=== PATIENT | female | born 1990 | race Caucasian/White ===

== ENCOUNTER 2017-12-17 00:12 | Emergency (ER) | payer OTHER ==
[2017-12-17] MEDS ORDERED: LORazepam 2 MG/ML INJ IV STA (00:15)
[2017-12-17] MEDS ORDERED: DIPH,PERTUS(ACELL)TETVAC-LF 0.5 ML VIAL IM ONE (00:17)
[2017-12-17] MEDS ORDERED: SODIUM CHLORIDE 0.9% 1,000 ML IV STA (00:17)
[2017-12-17] MEDS: HYDROmorphone 0.5 MG/0.5 ML SYRINGE IVP STA ×2 (00:19→02:56)
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
[2017-12-17] MEDS ORDERED: ceFAZolin IN SWFI 2 GM/20 ML SYRINGE IVP ONE (00:38)
[2017-12-17 00:39] LABS: Basophils % (A) 0 %; Eosinophils # (A) 0.4 k/uL (0-0.7); Eosinophils % (A) 4 %; HCT 39.4 % (34.0-46.0); HGB 12.5 gm/dL (11.4-16.0); Lymphocytes # (A) 3.2 k/uL (1.0-4.8); Lymphocytes % (A) 31 %; MCH 29.7 pg (25.0-35.0); MCHC 31.8 g/dL (31.0-37.0); MCV 93.3 fL (80.0-100.0); Mean Platelet Volume 8.4; Monocytes # (A) 0.4 k/uL (0-1.0); Monocytes % (A) 4 %; Neutrophils % (A) 59 %; Platelet Count 268 k/uL (150-450); RBC 4.22 m/uL (3.80-5.40); RDW 12.8 % (11.5-15.5); WBC 10.2 k/uL (3.8-10.6)
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
[2017-12-17 00:47] LABS: Partial Thromboplastin Time 22.4 sec (22.0-30.0); Prothrombin Time 10.1 sec (9.0-12.0)
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
[2017-12-17 00:48] LABS: ALT 28 U/L (9-52); AST 37 U/L (14-36); Albumin 4.4 g/dL (3.5-5.0); Alkaline Phosphatase 50 U/L (38-126); Amylase 54 U/L (30-110); Anion Gap 12 mmol/L; Blood Urea Nitrogen 11 mg/dL (7-17); Calcium 8.8 mg/dL (8.4-10.2); Carbon Dioxide 18 mmol/L (22-30); Chloride 112 mmol/L (98-107); Glucose 129 mg/dL (74-99); Lipase 145 U/L (23-300); Potassium 3.8 mmol/L (3.5-5.1); Sodium 142 mmol/L (137-145); Total Bilirubin 0.2 mg/dL (0.2-1.3); Total Protein 6.9 g/dL (6.3-8.2)
[2017-12-17 00:53] LABS: Alcohol 186 mg/dL
[2017-12-17 00:55] LABS: Creatine Kinase 77 U/L (30-135)
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
[2017-12-17 01:04] LABS: Glucose,Whole Blood 112 mg/dL (75-99)
[2017-12-17 01:09] LABS: Creatine Kinase MB 0.7 ng/mL (0.0-2.4); Troponin I <0.012 ng/mL (0.000-0.034)
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
[2017-12-17] MEDS ORDERED: SODIUM CHLORIDE 0.9% 1,000 ML IV ONE (03:31)
[2017-12-17 04:08] VITALS: BP 122/75; PULSE 120; RESP 18; TEMP 97.4
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
--- NOTE | 2017-12-18 08:13 | CDI ---
Documentation Clarification OP Dear Dr. Tariq Zafar Please provide specific abrasion site . Thank you, Kg San Truck Despatcher If you have any questions, please contact Multi Slide Machine Tender at [phone] [facility]
== END 2017-12-17 03:30 | disposition other institution (70) ==
LOC: EC 00:12
DX: S52.502B Unspecified fracture of the lower end of left radius, initial encounter for open fracture type I or II (principal); S70.212A Abrasion, left hip, initial encounter; S30.811A Abrasion of abdominal wall, initial encounter; F90.9 Attention-deficit hyperactivity disorder, unspecified type; F17.200 Nicotine dependence, unspecified, uncomplicated; Z79.899 Other long term (current) drug therapy; Z88.2 Allergy status to sulfonamides; Z23 Encounter for immunization; V28.5XXA Motorcycle passenger injured in noncollision transport accident in traffic accident, initial encounter; Y92.89 Other specified places as the place of occurrence of the external cause
CPT/HCPCS: 99291 ×2; 29105 ×2; 96374 ×2; 96375 ×3; 96376 ×2; 96361 ×4; 90471 ×2; 36415; 93005; 86900; 86901; 80053; 82150; 82550; 82553; 83605; 83690; 84484; 85025; 85610; 85730; 86850; 80320; 72170; 73090; 73590; 73610; 71045; 72125; 70450; 71260; 74177; 90715; J2060; J1170; J0690; Q9967

== ENCOUNTER 2017-12-18 23:21 | Emergency (ER) | payer OTHER ==
[2017-12-18 23:28] VITALS: RESP 20
[2017-12-18] MEDS ORDERED: MORPHINE SULFATE 4 MG/ML SYRINGE IM STA (23:35)
[2017-12-18] MEDS ORDERED: LIDOCAINE VISCOUS 2% 15 ML CUP MUCOUS MEM ONE (23:48)
[2017-12-19] MEDS ORDERED: BACITRACIN 500 UNIT/GM OINT 28.4 GM TUBE TOPICAL ONE (00:12)
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
[2017-12-19 01:10] VITALS: BP 149/79; PULSE 100; TEMP 98
== END 2017-12-19 01:11 | disposition home or self-care (01) ==
LOC: EC 23:21
DX: S52.92XE Unspecified fracture of left forearm, subsequent encounter for open fracture type I or II with routine healing (principal); S92.919 Unspecified fracture of unspecified toe(s); S70.212D Abrasion, left hip, subsequent encounter; S70.312D Abrasion, left thigh, subsequent encounter; S80.212D Abrasion, left knee, subsequent encounter; S90.512D Abrasion, left ankle, subsequent encounter; F90.9 Attention-deficit hyperactivity disorder, unspecified type; F17.200 Nicotine dependence, unspecified, uncomplicated; Z79.899 Other long term (current) drug therapy; Z88.2 Allergy status to sulfonamides; V29.9XXD Motorcycle rider (driver) (passenger) injured in unspecified traffic accident, subsequent encounter
CPT/HCPCS: 99283; 96372; J2270

== ENCOUNTER 2018-08-21 10:48 | Emergency (ER) | payer OTHER ==
[2018-08-21 10:52] VITALS: BP 117/79; PULSE 77; RESP 18; TEMP 97.8
--- NOTE | 2018-08-21 11:39 | XR ---
EXAMINATION TYPE: XR wrist complete LT DATE OF EXAM: 08/21/2018 CLINICAL HISTORY: Prior surgery with new pain. TECHNIQUE: Frontal, lateral and oblique images of the left wrist are obtained. COMPARISON: Left forearm x-ray December 17, 2017. FINDINGS: There is no new acute fracture/dislocation evident in the left wrist. There is fixating pl ate through healed fracture deformity distal radial metadiaphysis. There is some dorsal angulation of the distal ulna on lateral view without fracture. The carpal joint spaces are preserved. The overl rodrigo soft tissue shows soft tissue prominence or outpouching along dorsal surface at level of carpal bones suspicious for ganglion cyst. Correlate clinically. IMPRESSION: As above.
[2018-08-21] MEDS ORDERED: LIDOCAINE 1% INJ 10MG/ML (20 ML MDV) SQ ONE (11:58)
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
== END 2018-08-21 13:01 | disposition home or self-care (01) ==
LOC: EC 10:48
DX: M67.432 Ganglion, left wrist (principal); F90.9 Attention-deficit hyperactivity disorder, unspecified type; F17.200 Nicotine dependence, unspecified, uncomplicated; Z79.899 Other long term (current) drug therapy; Z88.2 Allergy status to sulfonamides
CPT/HCPCS: 73110; 99284; 10160; J2001

== ENCOUNTER 2018-11-27 05:05 | Emergency (ER) | payer OTHER ==
[2018-11-27 05:14] VITALS: PULSE 78
[2018-11-27] MEDS ORDERED: FAMOTIDINE 20 MG TAB PO STA (05:41)
[2018-11-27] MEDS ORDERED: predniSONE 50 MG TAB PO STA (05:41)
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
[2018-11-27 06:13] LABS: Basophils % (A) 0 %; Eosinophils # (A) 0.3 k/uL (0-0.7); Eosinophils % (A) 3 %; HCT 37.5 % (34.0-46.0); HGB 12.4 gm/dL (11.4-16.0); Lymphocytes # (A) 2.2 k/uL (1.0-4.8); Lymphocytes % (A) 22 %; MCH 30.5 pg (25.0-35.0); MCHC 33.1 g/dL (31.0-37.0); MCV 92.2 fL (80.0-100.0); Mean Platelet Volume 8.5; Monocytes # (A) 0.5 k/uL (0-1.0); Monocytes % (A) 5 %; Neutrophils # (A) 6.8 k/uL (1.3-7.7); Neutrophils % (A) 68 %; Platelet Count 264 k/uL (150-450); RBC 4.07 m/uL (3.80-5.40); RDW 14.4 % (11.5-15.5)
[2018-11-27] MEDS ORDERED: KETOROLAC 30 MG/ML 1 ML VIAL IVP STA (07:44)
[2018-11-27 07:50] VITALS: BP 114/71; RESP 16; TEMP 97.6
== END 2018-11-27 08:12 | disposition home or self-care (01) ==
LOC: EC 05:05
DX: L50.9 Urticaria, unspecified (principal); M19.071 Primary osteoarthritis, right ankle and foot; F90.9 Attention-deficit hyperactivity disorder, unspecified type; F17.200 Nicotine dependence, unspecified, uncomplicated; Z79.899 Other long term (current) drug therapy; Z88.2 Allergy status to sulfonamides
CPT/HCPCS: 36415; 84550; 85025; 99283; 96374; J1885; J7512

== ENCOUNTER → 2018-12-03 | Outpatient (CLI) | payer OTHER ==
--- NOTE | 2018-12-04 07:49 | XR ---
EXAMINATION TYPE: XR chest 2V DATE OF EXAM: 12/03/2018 COMPARISON: Prior chest x-ray 12/17/2017 HISTORY: COPD, dyspnea TECHNIQUE: Frontal and lateral views of the chest are obtained. FINDINGS: Prominent lung volumes with flattening of hemidiaphragms is noted suggesting underlying [employer] D. There is no focal air space opacity, pleural effusion, or pneumothorax seen. The cardiac silhouet te size is stable. The osseous structures are intact. IMPRESSION: No acute cardiopulmonary process.
== END | disposition home or self-care (01) ==
LOC: RADXRMAIN 14:31
PROVIDERS: ATTEND Internal Medicine Infectious Disease
DX: J44.9 Chronic obstructive pulmonary disease, unspecified (principal)
CPT/HCPCS: 71046

== ENCOUNTER → 2019-01-02 | Outpatient (CLI) | payer OTHER ==
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
== END | disposition home or self-care (01) ==
LOC: RADCTMAIN 14:59
PROVIDERS: ATTEND Physician Assistant
DX: R06.00 Dyspnea, unspecified (principal)
CPT/HCPCS: 71260; Q9967

== ENCOUNTER 2019-10-02 14:29 | Emergency (ER) | payer OTHER ==
[2019-10-02 14:37] VITALS: RESP 18; TEMP 98.4
[2019-10-02] MEDS ORDERED: IBUPROFEN 800 MG TAB PO STA (15:52)
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
[2019-10-02 16:48] VITALS: BP 128/68; PULSE 109
== END 2019-10-02 16:46 | disposition home or self-care (01) ==
LOC: EC 14:29
DX: S16.1XXA Strain of muscle, fascia and tendon at neck level, initial encounter (principal); S66.912A Strain of unspecified muscle, fascia and tendon at wrist and hand level, left hand, initial encounter; F90.9 Attention-deficit hyperactivity disorder, unspecified type; F17.200 Nicotine dependence, unspecified, uncomplicated; Z79.899 Other long term (current) drug therapy; Z88.2 Allergy status to sulfonamides; V43.52XA Car driver injured in collision with other type car in traffic accident, initial encounter; Y92.410 Unspecified street and highway as the place of occurrence of the external cause
CPT/HCPCS: 71046; 72050; 99283

== ENCOUNTER 2019-10-05 16:20 | Emergency (ER) | payer OTHER ==
[2019-10-05 16:26] VITALS: RESP 18
[2019-10-05] MEDS ORDERED: SODIUM CHLORIDE 0.9% 1,000 ML IV STA (16:57)
[2019-10-05] MEDS ORDERED: AMPICILLIN-SULBACTAM 3 GM in SODIUM CHLORIDE 0.9% 100 ML IVPB STA (16:58)
--- NOTE | 2019-10-05 17:17 | ED ---
General Adult HPI - General Chief complaint: Skin/Abscess/Foreign Body Stated complaint: chest pain,infected dog bite Time Seen by Provider: 10/05/19 16:34 Source: patient, RN notes reviewed Mode of arrival: ambulatory Limitations: no limitations - History of Present Illness Initial comments: 29-year-old female presents to the emergency dept for chief complaint of dog bite of the left hand. Patient was bitten by a dog 2 days ago on Saturday. Patient states she cleaned out the wound and then super glued it shut. Patient was not seen in the emergency department for this, she was seen the day before this happened. Patient's tetanus was updated in 2018. Patient saw her DIRECTOR OF ANALYTICS today who sent her to ER for eval. Patient is afebrile. She denies any tracking redness. Patient does have some mild rythema with associated edema to the back of the left hand. Patient has no other complaints at this time including shortness of breath, chest pain, abdominal pain, nausea or vomiting, headache, or visual changes. - Related Data Home Medications Medication Instructions Recorded Confirmed Dextroamphetamine/Amphetamine 20 mg PO DAILY 11/27/18 11/27/18 [Adderall] Previous Rx's Medication Instructions Recorded Famotidine [Pepcid] 20 mg PO BID #10 tablet 11/27/18 Ibuprofen [Motrin] 600 mg PO Q6HR PRN #20 tab 11/27/18 methylPREDNISolone Dose Pack 4 mg PO DIRECTED #21 package 11/27/18 [Medrol Dose Pack] Ibuprofen 800 mg PO Q6HR PRN #20 tablet 10/02/19 Orphenadrine [Norflex] 100 mg PO Q12H #10 tablet.er 10/02/19 Allergies Allergy/AdvReac Type Severity Reaction Status Date / Time Sulfa (Sulfonamide Allergy Rash/Hives. Verified 10/05/19 16:26 Antibiotics) DELUSIONS sulfamethoxazole Allergy Unknown Verified 10/05/19 16:26 [From Bactrim] trimethoprim [From Bactrim] Allergy Unknown Verified 10/05/19 16:26 Review of Systems ROS Statement: Those systems with pertinent positive or pertinent negative responses have been documented in the HPI. ROS Other: All systems not noted in ROS Statement are negative. Past Medical History Past Medical History: COPD, Skin Disorder Additional Past Medical History / Comment(s): IMPETIGO, UMBILICAL HERNIA. CHRONIC LOWER BACK PAIN. Arthritis History of Any Multi-Drug Resistant Organisms: None Reported Date of last positivie culture/infection: 2014 MDRO Source:: face Past Surgical History: Orthopedic Surgery, Tubal Ligation Additional Past Surgical History / Comment(s): left arm Past Anesthesia/Blood Transfusion Reactions: Motion Sickness Past Psychological History: ADD/ADHD, Anxiety Smoking Status: Current every day smoker Past Alcohol Use History: Occasional Past Drug Use History: None Reported - Past Family History Mother Family Medical History: No Reported History General Exam Limitations: no limitations General appearance: alert, in no apparent distress Head exam: Present: atraumatic, normocephalic, normal inspection Eye exam: Present: normal appearance, PERRL, EOMI. Absent: scleral icterus, conjunctival injection, periorbital swelling ENT exam: Present: normal exam, mucous membranes moist Neck exam: Present: normal inspection, full ROM. Absent: tenderness, meningismus, lymphadenopathy Respiratory exam: Present: normal lung sounds bilaterally. Absent: respiratory distress, wheezes, rales, rhonchi, stridor Cardiovascular Exam: Present: regular rate, normal rhythm, normal heart sounds. Absent: systolic murmur, diastolic murmur, rubs, gallop, clicks Extremities exam: Present: full ROM (Full range of motion of the left hand including the MCP joints of the first and second digits. Full ROm of the L wrist), normal capillary refill (Capillary refill less than 2 seconds, radial pulse 2+ in LUE), other (Patient does have erythema and edema noted to the dorsum of the left hand mainly in the distribution of the first second and third metacarpals. Does not include palmar aspect of hand. No tenderness over tendons or joints. Full ROM of the L wrist. There is a small 1 cm superficial laceration noted over the dorsum of the hand. Glue removed. There is no streaking redness up the arm. No obvious purulent drainage.). Absent: tenderness, pedal edema, joint swelling, calf tenderness Course Vital Signs 10/05/19 16:22 Temperature 98.5 F Pulse Rate 73 Respiratory 18 Rate Blood Pressure 123/82 O2 Sat by Pulse 100 Oximetry Medical Decision Making - Medical Decision Making Patient was sent in by nurse practitioner from [facility]. Vitals are stable. Patient afebrile. CBC CMP unremarkable. White blood cell count is 10. Lactic acid is 1.5. HCG is negative. Tetanus is up-to-date. X-ray of the left hand shows mild soft tissue injury may be along the dorsum of the hand which is consistent with patient's infection. No acute osseous abnormality. No radiopaque foreign body evident. I did also obtain an x-ray of the wrist nanetta culp patient stated she had a plate in the wrist. However this plate is located much more proximally than the infection. She does not have any streaking redness or spurting redness in this area. The glue has since been removed from the wound. Patient was given a dose of Unasyn. I had a lengthy discussion with patient. Given her history of COPD she prefers to try outpatient treatment as she is nervous about exposure to coronavirus. I do think this is reasonable given patient has not had oral antibiotics and does not have any tracking redness or fevers. Normal labs. Patient be started on Augmentin. She will follow up with primary care in the next one or 2 days to recheck the area. She will return for any worsening symptoms. - Lab Data Result diagrams: 10/05/19 17:31 10/05/19 17:31 Lab Results 10/05/19 10/05/19 10/05/19 Range/Units 17:31 17:31 17:31 WBC 10.0 (3.8-10.6) k/uL RBC 4.45 (3.80-5.40) m/uL Hgb 13.9 (11.4-16.0) gm/dL Hct 42.6 (34.0-46.0) % MCV 95.9 (80.0-100.0) fL MCH 31.3 (25.0-35.0) pg MCHC 32.7 (31.0-37.0) g/dL RDW 13.3 (11.5-15.5) % Plt Count 259 (150-450) k/uL Neutrophils % 75 % Lymphocytes % 16 % Monocytes % 5 % Eosinophils % 2 % Basophils % 0 % Neutrophils # 7.5 (1.3-7.7) k/uL Lymphocytes # 1.6 (1.0-4.8) k/uL Monocytes # 0.5 (0-1.0) k/uL Eosinophils # 0.2 (0-0.7) k/uL Basophils # 0.0 (0-0.2) k/uL Sodium 139 (137-145) mmol/L Potassium 3.5 (3.5-5.1) mmol/L Chloride 104 (98-107) mmol/L Carbon Dioxide 24 (22-30) mmol/L Anion Gap 11 mmol/L BUN 12 (7-17) mg/dL Creatinine 0.59 (0.52-1.04) mg/dL Est GFR (CKD-EPI)AfAm >90 (>60 ml/min/1.73 sqM) Est GFR (CKD-EPI)NonAf >90 (>60 ml/min/1.73 sqM) Glucose 109 H (74-99) mg/dL Plasma Lactic Acid Kan 1.5 (0.7-2.0) mmol/L Calcium 10.1 (8.4-10.2) mg/dL Total Bilirubin 0.3 (0.2-1.3) mg/dL AST 23 (14-36) U/L ALT 12 (4-34) U/L Alkaline Phosphatase 70 (38-126) U/L Total Protein 7.6 (6.3-8.2) g/dL Albumin 4.6 (3.5-5.0) g/dL Urine HCG, Qual (Not Detectd) 10/05/19 Range/Units 17:31 WBC (3.8-10.6) k/uL RBC (3.80-5.40) m/uL Hgb (11.4-16.0) gm/dL Hct (34.0-46.0) % MCV (80.0-100.0) fL MCH (25.0-35.0) pg MCHC (31.0-37.0) g/dL RDW (11.5-15.5) % Plt Count (150-450) k/uL Neutrophils % % Lymphocytes % % Monocytes % % Eosinophils % % Basophils % % Neutrophils # (1.3-7.7) k/uL Lymphocytes # (1.0-4.8) k/uL Monocytes # (0-1.0) k/uL Eosinophils # (0-0.7) k/uL Basophils # (0-0.2) k/uL Sodium (137-145) mmol/L Potassium (3.5-5.1) mmol/L Chloride (98-107) mmol/L Carbon Dioxide (22-30) mmol/L Anion Gap mmol/L BUN (7-17) mg/dL Creatinine (0.52-1.04) mg/dL Est GFR (CKD-EPI)AfAm (>60 ml/min/1.73 sqM) Est GFR (CKD-EPI)NonAf (>60 ml/min/1.73 sqM) Glucose (74-99) mg/dL Plasma Lactic Acid Kan (0.7-2.0) mmol/L Calcium (8.4-10.2) mg/dL Total Bilirubin (0.2-1.3) mg/dL AST (14-36) U/L ALT (4-34) U/L Alkaline Phosphatase (38-126) U/L Total Protein (6.3-8.2) g/dL Albumin (3.5-5.0) g/dL Urine HCG, Qual Not Detected (Not Detectd) Disposition Clinical Impression: Dog bite Disposition: HOME SELF-CARE Condition: Good Instructions (If sedation given, give patient instructions): Animal Bite (ED) Additional Instructions: Please take Augmentin as directed. Monitor for spreading redness. If redness is spreading or streaking up the wrist you need to return to the emergency room. If you have any fevers you need to return. If you start to have significant pain with movement of any joints you also need to return for reevaluation. Otherwise please follow-up with your doctor in the next one or 2 days to recheck the area. Is patient prescribed a controlled substance at d/c from ED?: No Referrals: Kemar Browne Jr, [Primary Care Provider] - 1-2 days Time of Disposition: 18:33
--- NOTE | 2019-10-05 17:28 | XR ---
EXAMINATION TYPE: XR hand complete LT DATE OF EXAM: 10/05/2019 COMPARISON: None HISTORY: Prior fracture, history of dog bite TECHNIQUE: Three-view left hand FINDINGS: Subtle soft tissue abnormality may be along the dorsum of the hand. No acute fractures are evident. No radiopaque foreign bodies are evident. Joint spaces are preserved. Follow-up exams can be performed 7-10 days from acute trauma for continued pain. IMPRESSION: 1. Mild soft tissue injury may be along the dorsum of the hand. 2. No acute osseous abnormality. 3. No radiopaque foreign body is evident.
--- NOTE | 2019-10-05 17:29 | XR ---
EXAMINATION TYPE: XR wrist complete LT DATE OF EXAM: 10/05/2019 COMPARISON: None HISTORY: Dog bite, pain, history of prior radial fracture with repair TECHNIQUE: 4 view left wrist FINDINGS: Joint spaces are preserved. No acute fractures or dislocations are evident. Soft tissues as visualized are normal. No radiopaque foreign bodies are evident. Plate and screws from prior radial repair are evident. Follow-up studies can be performed 7-10 days from acute trauma for continued pain. IMPRESSION: 1. No acute osseous abnormality left wrist.
[2019-10-05 17:43] LABS: Basophils % (A) 0 %; Eosinophils # (A) 0.2 k/uL (0-0.7); Eosinophils % (A) 2 %; HCT 42.6 % (34.0-46.0); HGB 13.9 gm/dL (11.4-16.0); Lymphocytes # (A) 1.6 k/uL (1.0-4.8); Lymphocytes % (A) 16 %; MCH 31.3 pg (25.0-35.0); MCHC 32.7 g/dL (31.0-37.0); MCV 95.9 fL (80.0-100.0); Mean Platelet Volume 9.3; Monocytes # (A) 0.5 k/uL (0-1.0); Monocytes % (A) 5 %; Neutrophils # (A) 7.5 k/uL (1.3-7.7); Neutrophils % (A) 75 %; Platelet Count 259 k/uL (150-450); RBC 4.45 m/uL (3.80-5.40); RDW 13.3 % (11.5-15.5)
[2019-10-05 17:52] LABS: ALT 12 U/L (4-34); AST 23 U/L (14-36); African American GFR (CKD) >90 (>60 ml/min/1.73 sqM); Albumin 4.6 g/dL (3.5-5.0); Alkaline Phosphatase 70 U/L (38-126); Anion Gap 11 mmol/L; Blood Urea Nitrogen 12 mg/dL (7-17); Calcium 10.1 mg/dL (8.4-10.2); Carbon Dioxide 24 mmol/L (22-30); Chloride 104 mmol/L (98-107); Glucose 109 mg/dL (74-99); Non-African American GFR(CKD) >90 (>60 ml/min/1.73 sqM); Potassium 3.5 mmol/L (3.5-5.1); Sodium 139 mmol/L (137-145); Total Bilirubin 0.3 mg/dL (0.2-1.3); Total Protein 7.6 g/dL (6.3-8.2)
[2019-10-05 18:53] VITALS: BP 124/84; PULSE 75; TEMP 98.1
== END 2019-10-05 18:47 | disposition home or self-care (01) ==
LOC: EC 16:20
DX: S61.452A Open bite of left hand, initial encounter (principal); S61.412A Laceration without foreign body of left hand, initial encounter; J44.9 Chronic obstructive pulmonary disease, unspecified; F90.9 Attention-deficit hyperactivity disorder, unspecified type; F17.200 Nicotine dependence, unspecified, uncomplicated; Z79.899 Other long term (current) drug therapy; Z88.2 Allergy status to sulfonamides; Z88.1 Allergy status to other antibiotic agents; Z96.698 Presence of other orthopedic joint implants; W54.0XXA Bitten by dog, initial encounter
CPT/HCPCS: 36415; 80053; 83605; 85025; 81025; 87040; 73110; 73130; 96365; 99283; J0295

== ENCOUNTER 2024-07-14 18:16 | Emergency (ER) | payer OTHER ==
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
[2024-07-14] MEDS: KETOROLAC 15 MG/ML 1 ML VIAL IVP STA (19:40)
[2024-07-14] MEDS: HYDROmorphone 1 MG/ML 1 ML SYRINGE IVP STA (19:41)
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
[2024-07-14 22:32] VITALS: BP 106/66; PULSE 84; RESP 18; TEMP 98.2
[2024-07-14] MEDS: IBUPROFEN 600 MG STARTER PACK 4 TAB BTL PO STA (22:33)
[2024-07-14] MEDS: ONDANSETRON 4 MG ODT STARTER PACK 2 TAB BTL PO STA (22:34)
[2024-07-14] MEDS: ACET/COD 300 MG/30 MG STARTER PACK 6 TAB BTL PO STA (22:34)
== END 2024-07-14 22:36 | disposition home or self-care (01) ==
LOC: EC 18:16
DX: S09.90XA Unspecified injury of head, initial encounter (principal); S40.012A Contusion of left shoulder, initial encounter; Z88.2 Allergy status to sulfonamides; Z88.8 Allergy status to other drugs, medicaments and biological substances; Y04.0XXA Assault by unarmed brawl or fight, initial encounter
CPT/HCPCS: 73030; 72125; 70486; 70450; 99284; 96374; 96375; J1171; J1885; S0119